=== PATIENT | female | born 1995 | race Caucasian/White ===

== ENCOUNTER → 2023-10-30 12:04 | Outpatient (CLI) | payer OTHER, SELFPAY ==
[2023-10-30 13:20] LABS: Free T4, Direct Thyroxine 1.24 ng/dL (0.78-2.19)
[2023-10-30 13:34] LABS: Thyroid Stimulating Hormone 0.939 uIU/mL (0.47-4.68)
[2023-11-04 12:09] LABS: Dilute Russell Viper Venom 33.9 sec (0.0-47.0); Lupus Reflex Interpretation Comment: (.); PTT-LA 35.7 sec (0.0-43.5)
[2023-11-14 22:09] LABS: Cardiolipin IgA Negative (.)
== END ==
PROVIDERS: PCP Nurse Practitioner Family; Referring Provider Obstetrics & Gynecology; Visit Provider Obstetrics & Gynecology
DX: N96 Recurrent pregnancy loss (principal)
CPT/HCPCS: 36415; 81240; 81241; 81291; 83520; 84144; 84439; 84443; 85598; 85613; 86147; 86148

== ENCOUNTER → 2024-07-16 15:40 | Outpatient (CLI) | payer OTHER, SELFPAY ==
[2024-07-16 17:03] LABS: HCG Quantitative /Beta subunit 24.87 mIU/mL
== END ==
PROVIDERS: Specialist; PCP Nurse Practitioner Family; Referring Provider Nurse Practitioner Family; Visit Provider Obstetrics & Gynecology
DX: N96 Recurrent pregnancy loss (principal); N91.2 Amenorrhea, unspecified
CPT/HCPCS: 36415; 84702

== ENCOUNTER → 2024-07-18 12:11 | Outpatient (CLI) | payer OTHER, SELFPAY ==
[2024-07-18 13:10] LABS: HCG Quantitative /Beta subunit 62.58 mIU/mL
== END ==
PROVIDERS: PCP Family Medicine; Referring Provider Specialist; Visit Provider Specialist
DX: N96 Recurrent pregnancy loss (principal); N91.2 Amenorrhea, unspecified
CPT/HCPCS: 36415; 84702

== ENCOUNTER → 2024-08-03 15:37 | Outpatient (CLI) | payer OTHER, SELFPAY ==
[2024-08-03 17:03] LABS: HCG Quantitative /Beta subunit 17361 mIU/mL
== END ==
PROVIDERS: PCP Family Medicine; Referring Provider Specialist; Visit Provider Specialist
DX: N96 Recurrent pregnancy loss (principal); Z3A.01 Less than 8 weeks gestation of pregnancy
CPT/HCPCS: 36415; 84702

== ENCOUNTER → 2024-08-26 12:30 | Outpatient (CLI) | payer OTHER, SELFPAY ==
[2024-08-26 15:00] LABS: HCG Quantitative /Beta subunit 26673 mIU/mL
== END ==
PROVIDERS: PCP Family Medicine; Referring Provider Obstetrics & Gynecology; Visit Provider Obstetrics & Gynecology
DX: Z34.80 Encounter for supervision of other normal pregnancy, unspecified trimester (principal)
CPT/HCPCS: 36415; 84702

== ENCOUNTER 2024-09-04 08:22 | Day surgery (SDC) | payer OTHER, SELFPAY ==
[2024-08-27 12:32] VITALS: BMI 21.7
--- NOTE | 2024-09-04 | PATH_ITS ---
[facility] Accession Number: [id number] No. of containers..01 Tissue . 01 Material submitted: . product of conception - PRODUCTS OF CONCEPTION . 01 Diagnosis: PRODUCTS OF CONCEPTION: Negative for products of conception. V 09/08/2024 1752 Local . 01 Comment: Dr. Myah Tavares discussed results with Dr. Lynn Lowe on 09/08/2024 at approximately 5:33 p.m. . 01 Electronically signed: . Myah Tavares MD, Pathologist NPI- [id number] . 01 Gross description: . The specimen is received in formalin, labeled with two patient identifiers and products of conception, and consists of a 2.5 x 1.5 x 1.0 cm aggregate of oreilly-brown, fibromembranous tissue. No tissue or distinct papilliferous tissue is identified. The specimen is filtered and entirely submitted in cassette A1. ([id number]) /[facility] 09/05/2024 1044 Local . 01 Pathologist provided ICD-10: O02.1 . 01 CPT . 047442 Specimen Comment: A courtesy copy of this report has been sent to [phone] Performed at: [address] [facility], [place], [place] [id number] MD Axel Payne MD Phone: [phone]
[2024-09-04] MEDS: LACTATED RINGERS 1,000 ML 21 ML IV (08:49)
[2024-09-04 08:52] VITALS: BP 107/68; PULSE 60; RESP 16; TEMP 37.1; O2SAT 100; BMI 21.6
[2024-09-04] MEDS: ACETAMINOPHEN IV 1,000 MG/100 ML VIAL 400 MG IV (09:07)
--- NOTE | 2024-09-04 09:20 | PM.GYNHP.1 ---
History of Present Illness History of Present Illness Reason for admission: missed Narrative: Rahel Trujillo is a 29 year old female 3 para 0 with a missed at 6 weeks gestation Third loss. [facility] Medical History Fractures (~2021) Infertility (~2022) Missed (~08/2022) History of supraventricular tachycardia Surgical History History of removal of skin mole [place] teeth extracted Anesthesia History of ankle surgery (~2021) History of D&C (~03/2023) History of cardiac radiofrequency ablation (~2021) Family History Mother Poonam's disease Grandfather Lung cancer Smoker Grandmother Alzheimer's disease Grandfather Alzheimer's disease Social History marital status: number of children: 1 household members: spouse lives independently: Yes caregiver/support person: No housing: house pets and animals: Yes (dogs) education level: master's degree (education) occupational status: employed (business and marketing teacher) current occupational exposures/hazards: No special prasanth needs: No travel history: recent ([place] & [place]) seatbelt use: always helmet use: Yes water heater temp set < 120 deg: Yes working smoke detector in home: Yes fire extinguisher in home: Yes carbon monox detector in home: Yes firearms in home: Yes firearms unloaded and locked: Yes do you feel safe at home: Yes Smoking Status: Never smoker second hand exposure: No alcohol intake: former substance use type: does not use during the past year weight has: remained stable well-balanced diet: daily or most days daily servings fruits/ve or more times/day caffeine: Yes (single cup black tea in AM) Type(s) of exercise: walking Meds Home Medications and Allergies Home Medications Medication Instructions Recorded Confirmed Type progesterone micronized 200 mg 200 mg PO BEDTIME #30 caps 09/18/23 08/25/24 Rx capsule (Prometrium) aspirin 81 mg tablet,delayed 81 mg PO DAILY 08/25/24 08/25/24 History release (Adult Low Dose Aspirin) vitamin-ferrous sulfate tab PO 08/25/24 08/25/24 History 27 mg iron-folic acid 0.8 mg tablet Allergies Allergy/AdvReac Type Severity Reaction Status Date / Time No Known Drug Allergies Allergy Verified 09/04/24 08:42 Exam Vital Signs (past 8 hours): - 09/04/24 08:52 Temperature 98.7 F Pulse Rate 60 Respiratory Rate 16 Blood Pressure 107/68 Pulse Oximetry 100 Oxygen Delivery Method Room Air Oxygen Delivery Method Room Air Narrative Exam Narrative: HEENT: No thyromegaly, no anterior cervical or supraclavicular lymphadenopathy. Lungs:Clear to auscultation bilaterally, no wheezes. Cardiovascular: Regular rate and rhythm, no murmurs, rubs, or gallops. Abdomen: No scars. No hepatosplenomegaly. No masses palpable. External genitalia: Normal Vagina: Normal Cervix: Normal Bimanual exam: 6 Week size anteverted uterus. Mobile. Rectal: No masses. Assessment & Plan Assessment & Plan narrative: Assessment: 29 year old with a missed at 6 wks gestation Recurrent loss Plan: Suction D&C The risks, benefits, and alternatives to the procedure were explained to the patient. The risks including bleeding, infection, and uterine perforation. She understands these risks and agrees to proceed. A full par Q was held and consent form was signed. Type and screen ordered Karyotype ordered Time-Based Coding :: [TOTAL MINUTES] spent with patient and on the chart (including review of chart, obtaining history, exam, reviewing outside data, placing orders, documenting exam and treatment plan, and counseling patient) on [DATE].
--- NOTE | 2024-09-04 09:27 | PM.PREOP ---
Pre-operative Note Interval Note History & Physical reviewed/Exam performed by Physician: Yes Changes to H&P: No H&P completed within 30 days and has changed as indicated here:: 09/04/24
--- NOTE | 2024-09-04 09:56 | SUR.OPER ---
Lithotomy on padded OR bed, head on pillow, arms paded and tucked. Legs secured in padded yellow fins stirrups.
[2024-09-04 10:11] VITALS: BP 93/56; PULSE 61; RESP 12; TEMP 36.6; O2SAT 100
[2024-09-04 10:16] VITALS: BP 101/43; PULSE 64; RESP 12; O2SAT 100
--- NOTE | 2024-09-04 10:16 | PM.GYNOP.1 ---
Operative Date/Time/Diagnoses Date of procedure: 09/04/24 Time of procedure: 10:16 Pre-op diagnosis: Missed at 6 wks gestation Post-op diagnosis: same Procedure & Clinicians Procedure: Procedures Operation Date: 09/04/24 09:45 Actual Procedure Side Surgeon keysha suction Dilation and Curettage Neli Pardo MD Indications: 29-year-old 3 para 0 with a missed at 6 weeks' gestation Surgeon: Neli Pardo Anesthesia Type: MAC +/- Operative Notes Findings: 6 wk size slightly retroverted uterus Large amount of products of conception Closure Type: not applicable Specimen(s): products of conception Estimated blood loss (mL): 50 Procedure in detail: After informed consent was obtained, the patient was taken to the operating room where she was placed in the dorsal supine position. After adequate MAC anesthesia was achieved, she was placed in the dorsal lithotomy position, and prepped and draped in the usual sterile fashion. A time-out was performed. A bivalve speculum was placed into the vagina and the anterior lip of the cervix was grasped with a single-tooth tenaculum. The cervical os was sequentially dilated to the # 8 Hegar dilator. The uterus was slightly retroverted. The # 7 curved curette passed easily into the endometrial cavity. Several passes with suction revealed a large amount of tissue. Two more passes with suction revealed blood only. The suction curette was removed from the uterus. The single-tooth tenaculum was removed from the anterior lip of the cervix. The bivalve speculum was removed from the vagina. Sponge, lap, and instrument counts were correct x2. The patient tolerated the procedure well, and was taken to PACU in stable condition. Complications: none Post-operative Condition: stable Disposition: PACU Plan for aftercare: Home after recovery
[2024-09-04 10:21] VITALS: BP 95/56; PULSE 79; RESP 16; O2SAT 99
[2024-09-04 10:31] VITALS: BP 95/60; PULSE 75; RESP 14; O2SAT 98
== END 2024-09-04 11:12 | disposition home or self-care (01) ==
PROVIDERS: PCP Family Medicine; Referring Provider Obstetrics & Gynecology; Visit Provider Obstetrics & Gynecology
PROC: (CPT 58120; principal; 2024-09-04 09:45)
DX: O02.1 Missed abortion (principal); Z3A.01 Less than 8 weeks gestation of pregnancy
CPT/HCPCS: 59820; 36415; 86850; 86900; 86901; J0131; J1100; J1885; J2250; J2405; J2704; J3010

== ENCOUNTER 2024-09-11 09:58 | Day surgery (SDC) | payer OTHER, SELFPAY ==
[2024-09-11] VITALS (8 sets, daily range): BP systolic 93–114; BP diastolic 58–75; PULSE 14–80; RESP 12–16; TEMP 36.5–36.8; O2SAT 99–100; BMI 21.6
--- NOTE | 2024-09-11 | PATH_ITS ---
[facility] Accession Number: [id number] No. of containers..01 Tissue . 01 Material submitted: . endometrium - UTERINE CONTENTS . 01 Diagnosis: UTERINE CONTENTS, CURETTINGS: Immature chorionic villi and fragments of decidualized endometrium, consistent with products of conception. Negative for gestational trophoblastic disease. MRV 09/15/2024 1758 Local . 01 Electronically signed: . Silvestre Kramer MD, Pathologist NPI- [id number] . 01 Gross description: . Received in formalin with two identifiers and uterine contents, are multiple oreilly spongy to membranous soft tissue fragments admixed with hemorrhagic material aggregating to 4.2 x 2.6 x 0.7 cm. No tissue is identified. Warehouse Director sections are submitted in cassettes A1-A2. ([id number]) /[facility] 09/13/2024 0502 Local . 01 Pathologist provided ICD-10: O02.1 . 01 CPT . 871203 Specimen Comment: A courtesy copy of this report has been sent to [phone] Performed at: [address] [facility] [address], [place], [place] [id number] MD Axel Payne MD Phone: [phone]
--- NOTE | 2024-09-11 08:03 | P.HPOB_ITS ---
History of Present Illness History of Present Illness Reason for admission: incomplete Narrative: Rahel Trujillo is a 29 year old female 3 para 0 with retained products of conception. She presents today for a suction D and C [facility] Medical History Fractures (~2021) Infertility (~2022) Missed (~08/2022) History of supraventricular tachycardia Surgical History History of removal of skin mole [place] teeth extracted Anesthesia History of ankle surgery (~2021) History of D&C (~03/2023) History of cardiac radiofrequency ablation (~2021) Family History Mother Poonam's disease Grandfather Lung cancer Smoker Grandmother Alzheimer's disease Grandfather Alzheimer's disease Social History marital status: number of children: 1 household members: spouse lives independently: Yes caregiver/support person: No housing: house pets and animals: Yes (dogs) education level: master's degree occupational status: employed current occupational exposures/hazards: No special prasanth needs: No travel history: recent seatbelt use: always helmet use: Yes water heater temp set < 120 deg: Yes working smoke detector in home: Yes fire extinguisher in home: Yes carbon monox detector in home: Yes firearms in home: Yes firearms unloaded and locked: Yes do you feel safe at home: Yes second hand exposure: No alcohol intake: former substance use type: does not use during the past year weight has: remained stable well-balanced diet: daily or most days daily servings fruits/ve or more times/day caffeine: Yes (single cup black tea in AM) Type(s) of exercise: walking Meds Home Medications and Allergies Home Medications Medication Instructions Recorded Confirmed Type vitamin-ferrous sulfate tab PO 08/25/24 08/25/24 History 27 mg iron-folic acid 0.8 mg tablet Allergies Allergy/AdvReac Type Severity Reaction Status Date / Time No Known Drug Allergies Allergy Verified 09/04/24 08:42 Exam Narrative Exam Narrative: HEENT: No thyromegaly, no anterior cervical or supraclavicular lymphadenopathy. Lungs:Clear to auscultation bilaterally, no wheezes. Cardiovascular: Regular rate and rhythm, no murmurs, rubs, or gallops. Abdomen: No scars. No hepatosplenomegaly. No masses palpable. External genitalia: Normal Vagina: Normal Cervix: Normal Bimanual exam: 6 Week size anteverted uterus. Mobile. Extremities: No edema Assessment & Plan Assessment & Plan narrative: Assessment: 29-year-old 3 para 0 with retained products of conception Plan: Suction D and C The risks, benefits, and alternatives to the procedure were explained to the patient. The risks including bleeding, infection, and uterine perforation. She understands these risks and agrees to proceed. A full par Q was held and consent form was signed. Time-Based Coding :: [TOTAL MINUTES] spent with patient and on the chart (including review of chart, obtaining history, exam, reviewing outside data, placing orders, documenting exam and treatment plan, and counseling patient) on [DATE].
[2024-09-11] MEDS: LACTATED RINGERS 1,000 ML 42 ML IV (10:22)
[2024-09-11] MEDS: SCOPOLAMINE 1 PATCH TOP (10:24)
[2024-09-11] MEDS: ACETAMINOPHEN 325 MG TABLET 975 MG PO (10:25)
[2024-09-11] MEDS: FAMOTIDINE 20 MG/2 ML VIAL IV (10:26)
--- NOTE | 2024-09-11 10:43 | PM.PREOP ---
Pre-operative Note Interval Note History & Physical reviewed/Exam performed by Physician: Yes Changes to H&P: No H&P completed within 30 days and has changed as indicated here:: 09/11/24
--- NOTE | 2024-09-11 11:09 | SUR.OPER ---
Lithotomy on padded OR bed, head on pillow, arms secured on padded arm boards at <90 degrees abduction. Legs secured in padded yellow fins stirrups.
--- NOTE | 2024-09-11 11:20 | PM.GYNOP.1 ---
Operative Date/Time/Diagnoses Date of procedure: 09/11/24 Time of procedure: 11:20 Pre-op diagnosis: Retained products of conception Post-op diagnosis: same Procedure & Clinicians Procedure: Procedures Operation Date: 09/11/24 11:00 Actual Procedure Side Surgeon p suction Dilation and Curettage Neli Pardo MD Indications: Patient is a 29 year 3 para 0 who underwent a D&C for a missed 1 week ago. On ultrasound yesterday she had retained products of conception Surgeon: Neli Pardo Anesthesia Type: General (LMA) Operative Notes Findings: 7 week size retroverted uterus Large amount of products of conception Closure Type: not applicable Specimen(s): products of conception Estimated blood loss (mL): 50 Blood products transfused: none Procedure in detail: After informed consent was obtained, the patient was taken to the operating room where she was placed in the dorsal supine position. After adequate LMA general anesthesia was achieved, she was placed in the dorsal lithotomy position, and prepped and draped in the usual sterile fashion. A time-out was performed. A bivalve speculum was placed into the vagina and the anterior lip of the cervix was grasped with a single-tooth tenaculum. The cervical os was sequentially dilated into the retroverted uterus until the plastic curved # 7 curette could pass easily into the endometrial cavity. Several passes with suction revealed a large amount of tissue. After the third pass there was blood only. Gentle sharp curettage was performed yielding blood only. The instruments were removed from the uterus. The single-tooth tenaculum was removed from the anterior lip of the cervix. The bivalve speculum was removed from the vagina. Sponge, lap, and instrument counts were correct x2. The patient tolerated the procedure well, and was taken to PACU in stable condition. Complications: none Post-operative Condition: stable Disposition: PACU Plan for aftercare: Home after recovery
[2024-09-11] MEDS: OXYCODONE IR 5 MG TABLET PO (11:38)
== END 2024-09-11 12:12 | disposition home or self-care (01) ==
PROVIDERS: PCP Family Medicine; Referring Provider Obstetrics & Gynecology; Visit Provider Obstetrics & Gynecology
PROC: (CPT 58120; principal; 2024-09-11 11:00)
DX: O02.1 Missed abortion (principal)
CPT/HCPCS: 59820; J1100; J1885; J2250; J2405; J2704; J3010

== ENCOUNTER → 2024-09-16 16:53 | Outpatient (CLI) | payer OTHER, SELFPAY ==
[2024-09-18 13:13] LABS: Candida species Negative (Negative); Gardnerella vaginalis Negative (Negative); Trichomoas vaginalis Negative (Negative)
== END ==
PROVIDERS: PCP Family Medicine; Visit Provider Obstetrics & Gynecology
DX: N89.8 Other specified noninflammatory disorders of vagina (principal)
CPT/HCPCS: 87070; 87205; 87480; 87510; 87660

== ENCOUNTER 2024-11-10 09:13 | Day surgery (SDC) | payer OTHER, SELFPAY ==
[2024-11-10] VITALS (9 sets, daily range): BP systolic 100–126; BP diastolic 55–82; PULSE 65–76; RESP 11–30; TEMP 36.4–36.6; O2SAT 99–100
--- NOTE | 2024-11-10 | PATH_ITS ---
[facility] Accession Number: [id number] No. of containers..01 Tissue . 01 Material submitted: . endometrium - ENDOMETRIAL DEBRIS . 01 Diagnosis: ENDOMETRIUM, BIOPSY: Predominantly devitalized tissue with scant intact chorionic villi present, consistent with products of conception. No evidence of neoplasm. MRV 11/12/2024 1620 Local . 01 Electronically signed: . Claude Gipson MD, PhD, Pathologist NPI- [id number] . 01 Gross description: . Received in formalin with two identifiers and endometrial debris, are multiple irregular pale oreilly to red-brown friable soft tissue fragments aggregating to 5.5 x 4.7 x 1.2 cm. Police Commanding Officer tissue is filtered and submitted in A1-A2. ([id number]) /[facility] 11/11/2024 1727 Local . 01 Pathologist provided ICD-10: O02.1 . 01 CPT . 496674 Specimen Comment: A courtesy copy of this report has been sent to [phone] Performed at: [address] [facility] [address], [place], [place] [id number] MD Axel Payne MD Phone: [phone]
[2024-11-10] MEDS: LACTATED RINGERS 1,000 ML 21 ML IV (09:42)
--- NOTE | 2024-11-10 09:48 | P.HPOB_ITS ---
History of Present Illness History of Present Illness Narrative: Rahel Trujillo is a 29 year old female 3 para 0 with persistent vaginal bleeding status post a miscarriage and 2 suction D and C's. On ultrasound there is some debris in the uterus. She did 1 course of misoprostol and she did not expel the debris. She presents for a D&C hysteroscopy. [facility] Medical History (Updated 09/17/24 @ 07:38 by Neli Pardo MD) Fractures (~2021) Infertility (~2022) Missed (~08/2022) History of supraventricular tachycardia Surgical History History of removal of skin mole [place] teeth extracted Anesthesia History of ankle surgery (~2021) History of D&C (~03/2023) History of cardiac radiofrequency ablation (~2021) Family History Mother Poonam's disease Grandfather Lung cancer Smoker Grandmother Alzheimer's disease Grandfather Alzheimer's disease Social History marital status: number of children: 1 household members: spouse lives independently: Yes caregiver/support person: No housing: house pets and animals: Yes (dogs) education level: master's degree occupational status: employed current occupational exposures/hazards: No special prasanth needs: No travel history: recent seatbelt use: always helmet use: Yes water heater temp set < 120 deg: Yes working smoke detector in home: Yes fire extinguisher in home: Yes carbon monox detector in home: Yes firearms in home: Yes firearms unloaded and locked: Yes do you feel safe at home: Yes second hand exposure: No alcohol intake: former substance use type: does not use during the past year weight has: remained stable well-balanced diet: daily or most days daily servings fruits/ve or more times/day caffeine: Yes (single cup black tea in AM) Type(s) of exercise: walking Meds Home Medications and Allergies Home Medications ?Medication ?Instructions ?Recorded ?Confirmed ?Type vitamin-ferrous sulfate tab PO 08/25/2411/09 History 27 mg iron-folic acid 0.8 mg tablet fluconazole 150 mg tablet 150 mg PO ONCE #2 tabs 09/1611/09/24 Rx metronidazole 0.75 % (37.5 mg/5 1 appful vaginal DAILY #70 grams 09/21/24 11/09/24 Rx gram) vaginal gel oxycodone 5 mg tablet 5 mg PO Q4-6H PRN pain #20 t abs 11/06/24 11/09/24 Rx Allergies Allergy/AdvReac Type Severity Reaction Status Date / Time No Known Drug Allergies Allergy Verified 11/09/24 15:51 Exam Narrative Exam Narrative: HEENT: No thyromegaly, no anterior cervical or supraclavicular lymphadenopathy. Lungs:Clear to auscultation bilaterally, no wheezes. Cardiovascular: Regular rate and rhythm, no murmurs, rubs, or gallops. Abdomen: No scars. No hepatosplenomegaly. No masses palpable. External genitalia: Normal Vagina: Normal Cervix: Normal Bimanual exam: 7 Week size AV uterus. Mobile. Rectal: No masses. Assessment & Plan Assessment & Plan narrative: Assessment: 29-year-old 3 para 0 with persistent vaginal bleeding after a miscarriage and 2 suction D and C's Debris in the uterus Plan: D&C hysteroscopy with removal of debris, fibroid, products of conception, or polyps The risks, benefits, and alternatives to the procedure were explained to the patient. The risks including bleeding, infection, and uterine perforation. She understands these risks and agrees to proceed. A full par Q was held and consent form was signed. Time-Based Coding :: [TOTAL MINUTES] spent with patient and on the chart (including review of chart, obtaining history, exam, reviewing outside data, placing orders, documenting exam and treatment plan, and counseling patient) on [DATE].
--- NOTE | 2024-11-10 09:52 | PM.PREOP ---
Pre-operative Note Interval Note History & Physical reviewed/Exam performed by Physician: Yes Changes to H&P: No H&P completed within 30 days and has changed as indicated here:: 11/10/24
[2024-11-10] MEDS: CEFAZOLIN 2 GM/100 ML PREMIX 100 ML IV (11:35)
--- NOTE | 2024-11-10 11:43 | SUR.OPER ---
Lithotomy on padded OR bed, head on pillow, arms secured on padded arm boards at <90 degrees abduction. Legs secured in padded yellow fins stirrups.
[2024-11-10] MEDS: OXYCODONE IR 5 MG TABLET PO (12:20)
[2024-11-10] MEDS: hydrOXYzine 50 MG/ML INJ 25 MG IM (12:22)
--- NOTE | 2024-11-10 12:42 | PM.GYNOP.1 ---
Operative Date/Time/Diagnoses Date of procedure: 11/10/24 Time of procedure: 11:50 Pre-op diagnosis: Thickened endometrium on ultrasound after miscarriage and 2 suction D and C's Persistent bleeding Post-op diagnosis: same Procedure & Clinicians Procedure: Procedures Operation Date: 11/10/24 11:00 Actual Procedure Side Surgeon p Hysteroscopy D&C removal of debris Neli Pardo MD Indications: 29-year-old 3 para 0 with persistent vaginal bleeding and thickened endometrial lining on ultrasound after a miscarriage and 2 suction D and C's. Surgeon: Neli Pardo Anesthesia Type: General (LMA) Operative Notes Findings: 7 week size anteverted uterus Thickened endometrium on the posterior lower uterine segment Specimen(s): endometrial curettings (And debris) Applied: none Estimated blood loss (mL): 10 Blood products transfused: none Procedure in detail: After informed consent was obtained, the patient was taken to the operating room where she was placed in the dorsal supine position. After adequate LMA general anesthesia was achieved, she was placed in the dorsal lithotomy position, and prepped and draped in the usual sterile fashion. A time-out was performed. A bivalve speculum was placed into the vagina and the anterior lip of the cervix was grasped with a single-tooth tenaculum. The cervical os was sequentially dilated until the MyoSure hysteroscope could pass easily into the endometrial cavity. Initial inspection showed both fallopian tube ostia. There was thickened endometrium in the lower uterine segment posteriorly. Using the MyoSure reach, a resection of all of the tissue in the thickened area of the endometrium was performed. The MyoSure and hysteroscope were removed from the uterus. The single-tooth tenaculum was removed from the anterior lip of the cervix. The bivalve speculum was removed from the vagina. Sponge, lap, and instrument counts were correct x2. The patient tolerated the procedure well, and was taken to PACU in stable condition. Deficit: 255 cc Total Fluid: 1700 cc Final pressure: 80 mmHg Cutting time: 2 minutes and 38 seconds Complications: none Post-operative Condition: stable Disposition: PACU Plan for aftercare: Home after recovery
== END 2024-11-10 13:32 | disposition home or self-care (01) ==
PROVIDERS: PCP Family Medicine; Referring Provider Obstetrics & Gynecology; Visit Provider Obstetrics & Gynecology
PROC: 0UDB8ZZ Extraction of Endometrium, Via Natural or Artificial Opening Endoscopic (ICD-10-PCS; CPT 58558; principal; 2024-11-10 11:00)
DX: O03.1 Delayed or excessive hemorrhage following incomplete spontaneous abortion (principal); R93.89 Abnormal findings on diagnostic imaging of other specified body structures
CPT/HCPCS: 58558; J0690; J1100; J1885; J2250; J2405; J2704; J3410

== ENCOUNTER → 2025-03-16 06:39 | Outpatient (CLI) | payer OTHER, SELFPAY ==
[2025-03-16 09:26] LABS: TSH w/ Reflex to FT4 3.99 uIU/mL (0.47-4.68)
[2025-03-17 17:48] LABS: Progesterone, Total 13.30 ng/mL
== END ==
PROVIDERS: PCP Family Medicine; Referring Provider Obstetrics & Gynecology; Visit Provider Obstetrics & Gynecology
DX: Z31.9 Encounter for procreative management, unspecified (principal); N96 Recurrent pregnancy loss
CPT/HCPCS: 36415; 84144; 84146; 84443

== ENCOUNTER → 2025-03-22 06:40 | Outpatient (CLI) | payer OTHER, SELFPAY ==
[2025-03-22 09:35] LABS: HCG Quantitative /Beta subunit 88.23 mIU/mL
== END ==
PROVIDERS: PCP Family Medicine; Referring Provider Family Medicine; Visit Provider Obstetrics & Gynecology
DX: Z32.01 Encounter for pregnancy test, result positive (principal)
CPT/HCPCS: 36415; 84702

== ENCOUNTER → 2025-03-24 06:53 | Outpatient (CLI) | payer OTHER, SELFPAY ==
[2025-03-24 07:51] LABS: Add Manual Diff / Slide Review NO; Hematocrit 39.7 % (36-46); Hemoglobin 13.5 g/dL (12.0-16.0); Lymphocytes Absolute Auto 2200 /uL (1100-4500); Mean Corpuscular HGB Conc 34.1 % (30-36); Mean Corpuscular Hemoglobin 31.7 PG (26-34); Mean Corpuscular Volume 92.8 fL (80-100); Platelet Count 267 X10^3/uL (150-400)
[2025-03-24 08:44] LABS: HCG Quantitative /Beta subunit 184.32 mIU/mL
== END ==
PROVIDERS: PCP Family Medicine; Referring Provider Obstetrics & Gynecology; Visit Provider Obstetrics & Gynecology
DX: Z32.01 Encounter for pregnancy test, result positive (principal); D64.9 Anemia, unspecified
CPT/HCPCS: 36415; 84702; 85025